=== PATIENT | female | born 1965 | race Two or more races ===

== ENCOUNTER → 2023-10-04 09:14 | Outpatient (REF) | payer BC, SELFPAY | LOC: WDC 09:14 | PROVIDERS: ATTENDING PHYSICIAN Nurse Practitioner Family | DX: R59.0 Localized enlarged lymph nodes (principal); N63.31 Unspecified lump in axillary tail of the right breast | CPT/HCPCS: 76642 ==

== ENCOUNTER → 2023-10-15 08:33 | Outpatient (REF) | payer BC, SELFPAY | LOC: RAD 08:33 | PROVIDERS: ATTENDING PHYSICIAN Nurse Practitioner Family | DX: Z78.0 Asymptomatic menopausal state (principal) | CPT/HCPCS: 77080 ==

== ENCOUNTER → 2023-10-23 06:52 | Outpatient (REF) | payer BC, SELFPAY | LOC: RAD 06:52 | PROVIDERS: ATTENDING PHYSICIAN Nurse Practitioner Family | DX: Z13.29 Encounter for screening for other suspected endocrine disorder (principal); Z13.21 Encounter for screening for nutritional disorder | CPT/HCPCS: 76536 ==

== ENCOUNTER → 2024-01-14 18:00 | Outpatient (REF) | payer BC, SELFPAY | LOC: RAD 18:00 | PROVIDERS: ATTENDING PHYSICIAN Nurse Practitioner Family | DX: M25.551 Pain in right hip (principal); M25.571 Pain in right ankle and joints of right foot | CPT/HCPCS: 73502; 73610 ==

== ENCOUNTER → 2024-01-21 11:08 | Outpatient (REF) | payer BC, SELFPAY | LOC: WDC 11:08 | PROVIDERS: ATTENDING PHYSICIAN Nurse Practitioner Family | DX: Z12.31 Encounter for screening mammogram for malignant neoplasm of breast (principal) | CPT/HCPCS: 77063; 77067 ==

== ENCOUNTER → 2024-03-04 08:02 | Outpatient (REF) | payer BC, SELFPAY | LOC: WDC 08:02 | PROVIDERS: ATTENDING PHYSICIAN Nurse Practitioner Family | DX: R92.2 Inconclusive mammogram (principal) | CPT/HCPCS: 76641 ==

== ENCOUNTER → 2024-04-18 15:15 | Outpatient (REF) | payer BC, SELFPAY | LOC: RAD 15:15 | PROVIDERS: ATTENDING PHYSICIAN Obstetrics & Gynecology Gynecology; FAMILY PHYSICIAN Nurse Practitioner Family | DX: N95.0 Postmenopausal bleeding (principal) | CPT/HCPCS: 76830; 76856 ==

== ENCOUNTER 2024-07-11 04:57 | Emergency (ER) | payer BC, SELFPAY ==
[2024-07-11 05:01] VITALS: BP 160/97
[2024-07-11 05:38] VITALS: BP 151/92
[2024-07-11 05:39] VITALS: BMI 29.1
--- NOTE | 2024-07-11 05:45 | ED.GENMED ---
History of Present Illness
<CAMILA Chatterjee Jr. Last Filed: 07/12/24 18:48>
General
Chief Complaint: Chest Pain
Source: patient
Exam Limitations: none
Time Seen by Provider: 07/11/24 05:32
Nursing documentation reviewed up to this point in time: agreed with
History of Present Illness
History of Present Illness:
59-year-old female presenting to the emergency department today with concerns of chest discomfort to the left chest that woke her from her sleep a few hours ago. Pleuritic made significantly worse with deep breaths described as sharp and
nonradiating to mild associated shortness of breath. Return from a trip to [place] yesterday evening. Denies significant leg swelling is on estrogen product hormone replacement therapy.
Review of Systems
<CAMILA Chatterjee Jr. Last Filed: 07/12/24 18:48>
Review of Systems
Allergies reviewed?: Yes
All Other Systems: ROS reviewed and negative except as documented in HPI and ROS
Phy Exam
<CAMILA Chatterjee Jr. Last Filed: 07/12/24 18:48>
Physical Exam
Physical Exam:
GENERAL: Alert , in no apparent distress
EYE: pupils equal and reactive
NECK: Supple, no significant adenopathy.
ENT: o/p clr, mmm.
CARDIAC: Regular rate and rhythm .
LUNGS: Clear breath sounds bilaterally, no acute respiratory distress, no wheezes/rales/rhonchi
ABDOMEN: Soft, without focal tenderness, no r/g, no cvat
NEUROLOGICAL: Alert and oriented, no focal neuro deficits
SKIN: Warm and dry, skin intact.
MUSCULOSKELETAL: No edema, well perfused.
PSYCH: Normal and appropriate interaction.
Scores
<CAMILA Chatterjee Jr. Last Filed: 07/12/24 18:48>
Heart Score for Chest Pain Patients
Heart Score for Chest Pain Patients: 2
Heart Score Risk: 2.5% MACE over next 6 weeks
<Aly Mckee PA-C - Last Filed: 07/11/24 11:01>
Heart Score for Chest Pain Patients
STEMI patient?: No
History: Slightly or Non-Suspicious
ECG: Normal
Age: >45 - <65 years
Risk Factors: 1 or 2 Risk Factors
Troponin: </= Normal Limit
Heart Score for Chest Pain Patients: 2
Heart Score Risk: 2.5% MACE over next 6 weeks
Course
<Joey Lopez Jr., PA-C - Last Filed: 07/12/24 18:48>
Orders/Labs/Results
Orders:
Orders
07/11/24 05:06
Electrocardiogram (*1) Urgent
Reason for Study: Chest Pain
EKG- Treatment ONCE
07/11/24 05:52
Complete Blood Count/With Diff Urgent
Comprehensive Metabolic Panel Urgent
D-Dimer Urgent
Troponin I Urgent
07/11/24 06:27
Aspirin 325 mg PO NOW STA
07/11/24 06:53
Morphine Sulfate 2 mg IV NOW STA
07/11/24 06:54
CR Chest - 2 Views Urgent
Comment:
Reason For Exam: chest pain
07/11/24 07:52
Ketorolac [Toradol] 30 mg IV NOW STA
07/11/24 08:30
Troponin I Urgent
07/11/24 09:12
Electrocardiogram (*1) Urgent
Reason for Study: Other
Other Reason for Exam: repeat troponin
07/11/24 09:13
EKG- Treatment ONCE
Abnormal Lab Results
07/11/24
05:52
WBC 11.0 H 10^3/uL
(4.8-10.8)
RBC 3.89 L 10^6/uL
(4.20-5.40)
Hct 36.4 L %
(37.0-47.0)
MCH 32.6 H pg
(27.0-31.0)
MPV 11.8 H fL
(7.4-10.4)
Absolute Neuts (auto) 9.2 H 10^3/uL
(1.4-6.5)
Absolute Lymphs (auto) 1.0 L 10^3/uL
(1.2-3.4)
Neutrophils % 83.4 H %
(42.2-75.2)
Lymphocytes % 9.3 L %
(20.5-51.1)
Glucose 112 H mg/dl
(70-99)
07/11/24 05:52
07/11/24 05:52
Vital Signs
Initial and Last Documented VS:
Initial Vital Signs
Temp Pulse Resp BP Pulse Ox
98.2 F 72 16 160/97 100
07/11/24 05:01 07/11/24 05:01 07/11/24 05:01 07/11/24 05:01 07/11/24 05:01
Last Documented Vital Signs
Temp Pulse Resp BP Pulse Ox
98.2 F 56 18 109/74 98
07/11/24 05:01 07/11/24 09:15 07/11/24 09:15 07/11/24 09:00 07/11/24 09:15
<Aly Mckee PA-C - Last Filed: 07/11/24 11:01>
Orders/Labs/Results
Orders:
Orders
07/11/24 05:06
Electrocardiogram (*1) Urgent
Reason for Study: Chest Pain
EKG- Treatment ONCE
07/11/24 05:52
Complete Blood Count/With Diff Urgent
Comprehensive Metabolic Panel Urgent
D-Dimer Urgent
Troponin I Urgent
07/11/24 06:27
Aspirin 325 mg PO NOW STA
07/11/24 06:53
Morphine Sulfate 2 mg IV NOW STA
07/11/24 06:54
CR Chest - 2 Views Urgent
Comment:
Reason For Exam: chest pain
07/11/24 07:52
Ketorolac [Toradol] 30 mg IV NOW STA
07/11/24 08:30
Troponin I Urgent
07/11/24 09:12
Electrocardiogram (*1) Urgent
Reason for Study: Other
Other Reason for Exam: repeat troponin
07/11/24 09:13
EKG- Treatment ONCE
Abnormal Lab Results
07/11/24
05:52
WBC 11.0 H 10^3/uL
(4.8-10.8)
RBC 3.89 L 10^6/uL
(4.20-5.40)
Hct 36.4 L %
(37.0-47.0)
MCH 32.6 H pg
(27.0-31.0)
MPV 11.8 H fL
(7.4-10.4)
Absolute Neuts (auto) 9.2 H 10^3/uL
(1.4-6.5)
Absolute Lymphs (auto) 1.0 L 10^3/uL
(1.2-3.4)
Neutrophils % 83.4 H %
(42.2-75.2)
Lymphocytes % 9.3 L %
(20.5-51.1)
Glucose 112 H mg/dl
(70-99)
07/11/24 05:52
07/11/24 05:52
Vital Signs
Initial and Last Documented VS:
Initial Vital Signs
Temp Pulse Resp BP Pulse Ox
98.2 F 72 16 160/97 100
07/11/24 05:01 07/11/24 05:01 07/11/24 05:01 07/11/24 05:01 07/11/24 05:01
Last Documented Vital Signs
Temp Pulse Resp BP Pulse Ox
98.2 F 56 18 109/74 98
07/11/24 05:01 07/11/24 09:15 07/11/24 09:15 07/11/24 09:00 07/11/24 09:15
<Joey Lopez Jr., PA-C - Last Filed: 07/12/24 18:48>
MDM/Problems Addressed
MDM/Problems Addressed:
59-year-old female presenting to the emergency department today with concerns of left-sided chest discomfort described as sharp pleuritic some mild associated shortness of breath. Started in the last few hours. Returned on a flight from [email or web address]
yesterday. Concern for potential PE initial D-dimer was ordered. Initial EKG without emergent findings. Vital signs normal. [facility]
<Aly Mckee PA-C - Last Filed: 07/11/24 11:01>
*Radiology
Radiology exam reviewed: preliminary read by ED provider (normal cxr)
*Critical Care Note
Total Time (30-74mins, 75-104mins- exclusive of procedures): Not Applicable
<Aly Mckee PA-C - Last Filed: 07/11/24 11:01>
Comment
Comment:
6:50 AM: Patient was received in signout pending labs and imaging studies. She has a negative D-dimer and negative troponin. On reevaluation patient still noting she has within the sternal portion of her chest, not reproducible with palpation.
Given her D-dimer is negative will obtain a chest x-ray to further evaluate and patient requesting something for pain. 2 mg of morphine ordered.
8:20 AM: Patient reevaluated and while the morphine did help she is still having the discomfort. I ordered 30 mg of Toradol for additional pain relief. Chest x-ray is negative for any acute cardiopulmonary processes. Repeat troponin pending.
Patient Management
Escalation/DeEscalation of care consider admission/obs:
Patient's repeat troponin is negative. She did note improved pain with Toradol and felt comfortable being discharged home. Chest pain hotline notified. Patient aware of return precautions.
ED Attending Note
<Joey Lopez Jr., PA-C - Last Filed: 07/12/24 18:48>
-
Portions of this chart may have been created with voice recognition software.� Occasional wrong word or��sound alike� substitutions may have occurred due to the inherent limitations of voice recognition software.
Discharge Plan
Departure
Patient Disposition: Home (Routine Discharge)
Date of Disposition: 07/11/24
Time of Disposition: 09:10
Patient with high blood pressure during this ER visit?: Yes
Discharge Problem:
Chest pain
Instructions: Chest Pain CBC Follow Up
Referrals:
Fatimah Justice CRNP [Family Provider] -
Interventions
Interventions:
*Risk Screen - Suicide Last Done: 07/11/24 05:06
*General Assessment Last Done: 07/11/24 05:39
*Neglect/Abuse Screening Last Done: 07/11/24 05:06
*ED- Fall Risk Assessment Last Done: 07/11/24 05:39
*ED COVID-19 Vaccine History Last Done: 07/11/24 05:39
*Nursing Disposition Last Done: 07/11/24 09:50
ED- Cardiac Assessment Last Done: 07/11/24 05:39
Discharge Date and Time
Discharge Date/Time: 07/11/24 09:50
Print Language: BULGARIAN
[2024-07-11 06:00] VITALS: BP 141/84
[2024-07-11 06:19] LABS: ALT (SGPT) 17 U/L (0-35); AST (SGOT) 21 U/L (14-36); Albumin 4.5 g/dl (3.5-5.0); Alkaline Phosphatase 93 U/L (38-126); Blood Urea Nitrogen 16 mg/dl (7-17); Calcium 9.3 mg/dl (8.4-10.2); Carbon Dioxide 27 mmol/L (22-30); Chloride 103 mmol/L (98-107); Estimated Creatinine Clearance 105 ml/min; Glucose 112 mg/dl (70-99); Potassium 3.6 mmol/L (3.5-5.1); Sodium 140 mmol/L (135-145); Total Bilirubin 1.2 mg/dl (0.2-1.3); Total Protein 6.9 g/dl (6.3-8.2); eGFR > 60.00
[2024-07-11 06:26] LABS: % Basophils 0.4 % (0-2); % Immature Granulocytes 0.3 % (0-0.5); % Lymphocytes 9.3 % (20.5-51.1); % Monocytes 5.6 % (1.7-9.3); % Neutrophils 83.4 % (42.2-75.2); Absolute Eosinophils 0.1 10^3/uL (0-0.7); Absolute Monocytes 0.6 10^3/uL (0.1-0.6); Absolute Neutrophils 9.2 10^3/uL (1.4-6.5); Hematocrit 36.4 % (37.0-47.0); Hemoglobin 12.7 g/dL (12.0-16.0); Mean Corp Hgb Conc. 34.9 g/dL (33.0-37.0); Mean Corpuscular Hgb 32.6 pg (27.0-31.0); Mean Corpuscular Volume 93.6 fL (81.0-99.0); Mean Platelet Volume 11.8 fL (7.4-10.4); Nucleated Red Blood Cells % 0 %; Platelet Count 196 10^3/uL (130-400); Red Blood Cell Count 3.89 10^6/uL (4.20-5.40); Red Cell Dist. Width 12.4 % (11.5-14.5)
[2024-07-11 06:29] LABS: Troponin I < 0.012 ng/ml
[2024-07-11] MEDS: ASPIRIN 325 MG PO (06:35)
[2024-07-11 06:43] LABS: D-Dimer < 0.27 ug/mlFEU (0.00-0.50)
[2024-07-11 07:00] VITALS: BP 144/84
[2024-07-11] MEDS: MORPHINE SULFATE 2 MG IV (07:14)
[2024-07-11 08:22] VITALS: BP 119/80
[2024-07-11] MEDS: TORADOL 30 MG IV (08:24)
[2024-07-11 09:00] VITALS: BP 109/74
[2024-07-11 09:07] LABS: Troponin I < 0.012 ng/ml
== END 2024-07-11 09:50 | disposition home or self-care (01) ==
LOC: EMR 04:57
PROVIDERS: Physician Assistant Medical; EMERGENCY PHYSICIAN Student in an Organized Health Care Education/Training Program; FAMILY PHYSICIAN Nurse Practitioner Family
DX: R07.89 Other chest pain (principal)
CPT/HCPCS: 99283; 96374; 96375; 71046; 80053; 84484; 85025; 85379; 93005

== ENCOUNTER → 2024-07-15 15:50 | Outpatient (REF) | payer BC, SELFPAY ==
[2024-07-15 16:58] LABS: D-Dimer < 0.27 ug/mlFEU (0.00-0.50)
== END ==
LOC: REG 15:50
PROVIDERS: ATTENDING PHYSICIAN Nurse Practitioner Family
DX: M54.9 Dorsalgia, unspecified (principal)
CPT/HCPCS: 36415; 85379

== ENCOUNTER → 2024-07-17 14:52 | Outpatient (REF) | payer BC, SELFPAY | LOC: HWRAD 14:52 | PROVIDERS: ATTENDING PHYSICIAN Nurse Practitioner Family | DX: R14.2 Eructation (principal) | CPT/HCPCS: 76700 ==

== ENCOUNTER → 2024-09-02 07:48 | Outpatient (REF) | payer BC, SELFPAY | LOC: WDC 07:48 | PROVIDERS: ATTENDING PHYSICIAN Nurse Practitioner Family | DX: R92.8 Other abnormal and inconclusive findings on diagnostic imaging of breast (principal) | CPT/HCPCS: 76642 ==

== ENCOUNTER → 2024-11-21 07:27 | Outpatient (REF) | payer BC, SELFPAY | LOC: RAD 07:27 | PROVIDERS: ATTENDING PHYSICIAN Nurse Practitioner Family; FAMILY PHYSICIAN Nurse Practitioner Family | DX: E06.3 Autoimmune thyroiditis (principal); E04.2 Nontoxic multinodular goiter | CPT/HCPCS: 76536 ==

== ENCOUNTER → 2024-12-27 11:17 | Outpatient (REF) | payer BC, SELFPAY | LOC: WDC 11:17 | PROVIDERS: ATTENDING PHYSICIAN Obstetrics & Gynecology Gynecology; FAMILY PHYSICIAN Nurse Practitioner Family | DX: Z12.31 Encounter for screening mammogram for malignant neoplasm of breast (principal) | CPT/HCPCS: 77063; 77067 ==